=== PATIENT | male | born 1955 | race Caucasian/White ===

== ENCOUNTER → 2022-09-23 12:48 | Outpatient (CLI) | payer MEDICARE, BC, SELFPAY ==
[2022-09-23 14:19] LABS: Prostate Specific Antigen 3.57 ng/mL (0.10-4.00)
== END ==
PROVIDERS: Specialist; Referring Provider Urology; Visit Provider Urology
DX: N40.1 Benign prostatic hyperplasia with lower urinary tract symptoms (principal)
CPT/HCPCS: 36415; 84153

== ENCOUNTER → 2023-03-10 12:39 | Outpatient (CLI) | payer MEDICARE, BC, SELFPAY ==
[2023-03-10 15:19] LABS: Prostate Specific Antigen 4.39 ng/mL (0.10-4.00)
== END ==
PROVIDERS: Referring Provider Specialist; Visit Provider Specialist
DX: N40.1 Benign prostatic hyperplasia with lower urinary tract symptoms (principal)
CPT/HCPCS: 36415; 84153

== ENCOUNTER → 2023-04-08 15:17 | Outpatient (CLI) | payer MEDICARE, BC, SELFPAY ==
[2023-04-11 09:06] LABS: PSA Free % 26.2 % (.); PSA, Total 3.4 ng/mL (0.0-4.0)
== END ==
PROVIDERS: Referring Provider Specialist; Visit Provider Specialist
DX: R97.20 Elevated prostate specific antigen [PSA] (principal)
CPT/HCPCS: 36415; 84153; 84154

== ENCOUNTER 2023-10-04 10:29 | Emergency (ER) | payer MEDICARE, BC, SELFPAY ==
[2023-10-04] VITALS (7 sets, daily range): BP systolic 111–141; BP diastolic 56–75; PULSE 61–68; RESP 12–20; TEMP 36.4–36.5; O2SAT 93–99; BMI 28.0
--- NOTE | 2023-10-04 10:40 | DI.RAD.S_ITS ---
PROCEDURE: XR CHEST 1V INDICATIONS: chest pain TECHNIQUE: One view of the chest was acquired. COMPARISON: None. FINDINGS: Surgical changes and devices: Left chest wall cardiac loop recorder. Lungs and pleura: Lungs are clear. No pleural effusions or pneumothorax. Mediastinum: Mediastinal contours appear normal. Heart size is normal. Bones and chest wall: No suspicious bony lesions. Overlying soft tissues appear unremarkable. IMPRESSION: No acute cardiopulmonary abnormality is seen. Dictated by: Luis A Nath M.D. on 10/04/2023 at 11:37 Approved by: Luis A Nath M.D. on 10/04/2023 at 11:38
[2023-10-04 10:51] LABS: Add Manual Diff / Slide Review NO; Basophils Absolute Auto 100 /uL (0-100); Basophils Percent Auto 1.1 % (0-2); Eosinophils Absolute Auto 100 /uL (0-450); Eosinophils Percent Auto 2.1 % (2-4); Hematocrit 43.1 % (41-53); Hemoglobin 14.6 g/dL (13.5-17.5); Lymphocytes Absolute Auto 2000 /uL (1100-4500); Lymphocytes Percent Auto 35.2 % (25-40); Mean Corpuscular HGB Conc 33.9 % (30-36); Mean Corpuscular Hemoglobin 28.4 PG (26-34); Monocytes Absolute Auto 400 /uL (0-900); Neutrophils Absolute Auto 3000 /uL (1500-7000); Neutrophils Percent Auto 53.6 % (50-75); Platelet Count 153 X10^3/uL (150-400); Red Blood Cell Count 5.13 X10^6/uL (4.5-5.9); Red Cell Distribution Width 13.8 % (11.6-14.8); White Blood Cell Count 5.7 X10^3/uL (4.5-11.0)
[2023-10-04] MEDS: ASPIRIN 81 MG CHEW TAB 324 MG PO (10:54)
[2023-10-04 10:59] LABS: Prothrombin Time 11.5 SECONDS (9.4-12.5)
[2023-10-04 11:02] LABS: Alanine Aminotransferase 32 IU/L (<50); Albumin 4.5 g/dL (3.5-5.0); Albumin Globulin Ratio 1.5 (1.0-2.8); Alkaline Phosphatase 66 U/L (38-126); Aspartate Aminotransferase 35 IU/L (17-59); Bilirubin Total 1.5 mg/dL (0.2-1.3); Blood Urea Nitrogen 14 mg/dL (9-20); Calcium 9.4 mg/dL (8.4-10.2); Carbon Dioxide 29 mmol/L (22-32); Chloride 107 mmol/L (98-107); Creatine Kinase 208 U/L (55-170); Estimated Glomerular Filt Rate > 60 mL/min (>60); Glucose 97 mg/dL (80-110); HEMOLYSIS < 15 (0-50); Lipase 130 U/L (23-300); Magnesium 2.2 mg/dL (1.6-2.3); PTT Partial Thromboplastin Tim 38 SECONDS (25.1-36.5); Potassium 4.5 mmol/L (3.4-5.1); Sodium 140 mmol/L (137-145); Total Protein 7.5 g/dL (6.3-8.2)
[2023-10-04 11:13] LABS: Troponin I 0.013 ng/mL (0.01-0.034)
--- NOTE | 2023-10-04 12:38 | ED.CHESTPAIN ---
HPI - Chest Pain General Chief Complaint: Chest Pain Stated Complaint: pain in chest, has heart monitor per pt Time Seen by Provider: 10/04/23 10:31 Source: patient Mode of arrival: Ambulatory History of Present Illness HPI narrative: 68-year-old male with history of atrial fibrillation on flecainide and diltiazem, atorvastatin with complaint of pain at his loop recorder site. Patient states it was placed in July or August of 2020 by his life scientist in [place]. He is since moved to the area. He started having pain recently at the implant site when he moves or pushes it increases the pain. He has not noticed any redness, swelling or skin changes. No pain elsewhere in his chest, no shortness of breath, no new swelling in extremities other than his left knee which is painful with movement at times. Patient states no fevers or chills. No cold cough congestion symptoms. No other GI or urinary symptoms. Patient had about 20 years of atrial fibrillation that became increasingly more frequent and had his ablation in 2020 followed by a loop recorder. He has not had anymore atrial fibrillation events since then. He reached out to his deputy director of finance office but because he is currently living in [place] they recommended he come to the ED and then be referred back to a local EP. Related Data Home Medications Medication Instructions Recorded Confirmed atorvastatin 10 mg tablet 10 mg PO DAILY 08/11/22 04/21/23 tamsulosin 0.4 mg capsule 0.8 mg PO DAILY 08/11/22 04/21/23 Previous Rx's Medication Instructions Recorded tadalafil 20 mg tablet (Cialis) 20 mg PO DAILY PRN sexual activity 04/21/23 #60 tabs Allergies Allergy/AdvReac Type Severity Reaction Status Date / Time No Known Drug Allergies Allergy Unverified 10/04/23 10:40 Review of Systems Review of Systems ROS Unobtainable: All systems reviewed & are unremarkable except as noted in HPI and below Patient History Medical History Erectile dysfunction Incomplete bladder emptying BPH loc w urin obs/LUTS Family History Mother Cancer Father No problems noted. Sister Diabetes mellitus Social History marital status: unmarried,single number of children: 0 Previous occupational history: mortgage banking Smoking Status: Never smoker alcohol intake: former caffeine: Yes Smoking Status: Never smoker Substance Use Type: does not use Exam Narrative Exam Narrative: GENERAL: Alert and oriented x three, well-appearing male in no acute distress. HEENT: Head normocephalic, atraumatic, EOMI, pupils reactive, face symmetric, moist mucous membranes NECK: Supple, full range of motion CARDIOVASCULAR: Regular rate and rhythm without murmurs, rubs or gallops. Patient has palpable recorder there is no swelling, erythema, patient does not have significant pain with motion. RESPIRATORY: Breath sounds equal bilaterally, no wheezes rales or rhonchi. No tachypnea accessory muscle use. ABDOMEN: Soft, nontender. Normoactive bowel sounds all 4 quadrants. No guarding or rebound, rigidity, no mass : No CVA tenderness EXTREMITIES: Normal range of motion, no clubbing or edema. Neurovascularly intact. Patient has some mild swelling in his left knee increased pain with movement which he states is worse with activity. NEUROLOGICAL: Cranial nerves II through XII grossly intact. Moving all extremities SKIN: Warm, dry, no petechiae, no rashes or lesions. Initial Vital Signs Initial Vital Signs: Vital Signs Pulse Rate 64 10/04/23 10:36 Respiratory Rate 17 10/04/23 10:36 Pulse Oximetry 99 10/04/23 10:36 Course Orders Ordered: ED Orders 10/04/23 10:40 XR chest 1V Stat Complete Blood Count AUTO DIFF Stat Comprehensive Metabolic Panel Stat Lipase Stat Magnesium Stat PTT Partial Thromboplastin [place] Stat Prothrombin Time INR Stat Troponin & CK Cardiac Panel Stat EKG-12 Lead Stat Discontinued Medications Aspirin (Aspirin 81 Mg Chew Tab) 324 mg PO NOW ONE Stop: 10/04/23 10:41 Last Admin: 10/04/23 10:54 Dose: 324 mg Documented By: DELORES Vital Signs Vital signs: Vital Signs - 8 hr 10/04/23 10:36 10/04/23 10:37 10/04/23 11:01 Temperature 97.5 F L Pulse Rate 64 66 Respiratory Rate 17 16 Blood Pressure 141/75 H 111/56 L Pulse Oximetry 99 98 Oxygen Delivery Method Room Air 10/04/23 11:01 10/04/23 11:30 10/04/23 11:30 Temperature Pulse Rate 67 68 Respiratory Rate 20 14 Blood Pressure 113/61 Pulse Oximetry 98 93 Oxygen Delivery Method 10/04/23 12:00 10/04/23 12:00 10/04/23 12:30 Temperature Pulse Rate 64 Respiratory Rate 14 Blood Pressure 120/69 118/73 Pulse Oximetry 96 Oxygen Delivery Method 10/04/23 12:30 10/04/23 13:20 Temperature 97.7 F Pulse Rate 62 61 Respiratory Rate 12 18 Blood Pressure 120/71 Pulse Oximetry 96 98 Oxygen Delivery Method Room Air Room Air MDM - Chest Pain Lab Data 10/04/23 10:40 10/04/23 10:40 Labs: Lab Results 10/04/23 Range/Units 10:40 WBC 5.7 (4.5-11.0) X10^3/uL RBC 5.13 (4.5-5.9) X10^6/uL Hgb 14.6 (13.5-17.5) g/dL Hct 43.1 (41-53) % MCV 84.0 (80-100) fL MCH 28.4 (26-34) PG MCHC 33.9 (30-36) % RDW 13.8 (11.6-14.8) % Plt Count 153 (150-400) X10^3/uL Neut % (Auto) 53.6 (50-75) % Lymph % (Auto) 35.2 (25-40) % [place] % (Auto) 8.0 (3-14) % Eos % (Auto) 2.1 (2-4) % Baso % (Auto) 1.1 (0-2) % Neut # (Auto) 3000 (9044-9514) /uL Lymph # (Auto) 2000 (3736-8015) /uL [place] # (Auto) 400 (0-900) /uL Eos # (Auto) 100 (0-450) /uL Baso # (Auto) 100 (0-100) /uL PT 11.5 (9.4-12.5) SECONDS INR 1.0 (0.9-1.3) APTT 38 H (25.1-36.5) SECONDS Sodium 140 (137-145) mmol/L Potassium 4.5 (3.4-5.1) mmol/L Chloride 107 (98-107) mmol/L Carbon Dioxide 29 (22-32) mmol/L BUN 14 (9-20) mg/dL Creatinine 1.00 (0.66-1.25) mg/dL Estimated GFR > 60 (>60) mL/min BUN/Creatinine Ratio 14.0 (6-22) Glucose 97 (80-110) mg/dL Calcium 9.4 (8.4-10.2) mg/dL Magnesium 2.2 (1.6-2.3) mg/dL Total Bilirubin 1.5 H (0.2-1.3) mg/dL AST 35 (17-59) IU/L ALT 32 (<50) IU/L Alkaline Phosphatase 66 (38-126) U/L Total Creatine Kinase 208 H (55-170) U/L Troponin I 0.013 (0.01-0.034) ng/mL Total Protein 7.5 (6.3-8.2) g/dL Albumin 4.5 (3.5-5.0) g/dL Globulin 3.0 (1.7-4.1) g/dL Albumin/Globulin Ratio 1.5 (1.0-2.8) Lipase 130 (23-300) U/L Imaging Data Chest x-ray: Radiologist's Impression: Rufino Osborne??68??M??1955 ? Allergy/Adv: No Known Drug Allergies Close Chest X-Ray (Signed) Luis A Nath - 10/04/23 [place] [address] XRay Report Signed Patient: Rufino Osborne MR#: [id number] : 1955 Acct:[id number] Age/Sex: 68 / M Date of Service: 10/04/23 Loc: ED Accession Number: [id number] Procedure: XR chest 1V Ordering Provider: Freda Coleman D.O. PROCEDURE: XR CHEST 1V INDICATIONS: chest pain TECHNIQUE: One view of the chest was acquired. COMPARISON: None. FINDINGS: Surgical changes and devices: Left chest wall cardiac loop recorder. Lungs and pleura: Lungs are clear. No pleural effusions or pneumothorax. Mediastinum: Mediastinal contours appear normal. Heart size is normal. Bones and chest wall: No suspicious bony lesions. Overlying soft tissues appear unremarkable. IMPRESSION: No acute cardiopulmonary abnormality is seen. Dictated by: Luis A Nath M.D. on 10/04/2023 at 11:37 Approved by: Luis A Nath M.D. on 10/04/2023 at 11:38 ECG Data Attestation: I personally reviewed and interpreted this ECG as follows: Prior ECG tracings: not available for review Interpretation: Sinus rhythm rate of 68 LA 182 QRS 82 QTC of 421. No acute ST elevation or depression noted. No priors for comparison. MDM Narrative Medical decision making narrative: 68-year-old male with pain with movement or palpation of his implant which has been increasing over the past month. No obvious infectious changes, patient's chest x-ray shows no acute change labs show white count of 5.7 hemoglobin of 14 platelets of 153 INR 1, creatinine is 1 with a BUN of 14 glucose of 97 sodium is 140 with a potassium of 4 5 chloride of 107 and a CO2 of 29, bilirubin slightly elevated at 1.5 with otherwise negative LFTs and a negative lipase. Troponin is 0.013 with a proximally a month of longstanding pain without resolution is not felt to likely be cardiac in source. EKG does not show any acute changes does not appear to be in sinus rhythm. No obvious infectious changes to the recorder itself. Discussed with patient we will give contact for follow up with EP. He also notes pain in his left knee with movement ambulation occasional swelling with activity no trauma or injuries. Patient would like follow up with Orthopedic surgery and contact was given for this as well. Discharge Plan Departure Patient Disposition: Home Clinical Impression: Atypical chest pain Activity Restrictions/Additional Instructions: Follow up Cardiology, if you continue to have discomfort at your loop recorder you can further evaluate it. Please call the contact below to set up follow-up. As discussed there is also referral for orthopedic surgery for your knee. You may continue your home medications as prescribed. Please return for increasing pain, redness, swelling, fevers, new shortness of breath, passing out, arrhythmias, swelling that is new in your extremities or other new or concerning changes, Prescriptions: No Action tadalafil [Cialis] 20 mg tablet 20 mg PO DAILY PRN (Reason: sexual activity) Qty: 60 3RF Rx Instructions: administer approximately 30min before sexual activity; do not use more than 1 dose per 24hrs tamsulosin 0.4 mg capsule 0.8 mg PO DAILY atorvastatin 10 mg tablet 10 mg PO DAILY Referrals: Geremias Osborne MD [Physician] - Ghulam Richardson MD [Physician] - Stand Alone Forms: Patient Portal/API
== END 2023-10-04 13:21 | disposition home or self-care (01) ==
PROVIDERS: Emergency Provider Emergency Medicine
DX: R07.89 Other chest pain (principal)
CPT/HCPCS: 71045; 80053; 82550; 83690; 83735; 84484; 85025; 85610; 85730; 93005; 99284

== ENCOUNTER → 2023-10-20 09:53 | Outpatient (CLI) | payer MEDICARE, BC, SELFPAY ==
[2023-10-20 10:15] LABS: Add Manual Diff / Slide Review NO; Basophils Absolute Auto 100 /uL (0-100); Basophils Percent Auto 1.3 % (0-2); Eosinophils Absolute Auto 100 /uL (0-450); Eosinophils Percent Auto 1.8 % (2-4); Hematocrit 42.9 % (41-53); Hemoglobin 14.4 g/dL (13.5-17.5); Lymphocytes Absolute Auto 2100 /uL (1100-4500); Lymphocytes Percent Auto 37.7 % (25-40); Mean Corpuscular HGB Conc 33.6 % (30-36); Mean Corpuscular Hemoglobin 28.1 PG (26-34); Mean Corpuscular Volume 83.6 fL (80-100); Monocytes Absolute Auto 500 /uL (0-900); Monocytes Percent Auto 8.3 % (3-14); Neutrophils Absolute Auto 2900 /uL (1500-7000); Neutrophils Percent Auto 50.9 % (50-75); Platelet Count 162 X10^3/uL (150-400); Red Blood Cell Count 5.14 X10^6/uL (4.5-5.9); Red Cell Distribution Width 13.6 % (11.6-14.8); White Blood Cell Count 5.6 X10^3/uL (4.5-11.0)
[2023-10-20 10:23] LABS: Prothrombin Time 10.9 SECONDS (9.4-12.5)
[2023-10-20 10:30] LABS: Blood Urea Nitrogen 21 mg/dL (9-20); Calcium 9.7 mg/dL (8.4-10.2); Carbon Dioxide 28 mmol/L (22-32); Chloride 109 mmol/L (98-107); Estimated Glomerular Filt Rate > 60 mL/min (>60); Glucose 102 mg/dL (80-110); HEMOLYSIS < 15 (0-50); Potassium 4.6 mmol/L (3.4-5.1); Sodium 139 mmol/L (137-145)
[2023-10-20 10:31] LABS: PTT Partial Thromboplastin Tim 38 SECONDS (25.1-36.5)
== END ==
PROVIDERS: PCP Physician Assistant; Referring Provider Internal Medicine; Visit Provider Internal Medicine
DX: I49.9 Cardiac arrhythmia, unspecified (principal); Z95.818 Presence of other cardiac implants and grafts; R00.2 Palpitations
CPT/HCPCS: 36415; 80048; 85025; 85610; 85730

== ENCOUNTER → 2024-01-21 18:32 | Outpatient (CLI) | payer MEDICARE, BC, SELFPAY ==
--- NOTE | 2024-01-21 18:34 | DI.MRI.S_ITS ---
PROCEDURE: MR HIP LT WO CON INDICATIONS: HIP PAIN, CHRONIC / TENDON/LIGAMENT ABNORMALITY TECHNIQUE: Noncontrast coronal T1 spin echo and STIR through the bony pelvis. Coronal and axial T2 fast spin echo with fat saturation, sagittal T1 spin echo, and oblique axial T2 fast spin echo with fat saturation through the hip. COMPARISON: [facility] [place], CR, XR PELVIS WITH LATERAL HIP LEFT, 12/30/2023, 11:09. FINDINGS: Image quality: Excellent. Bones and joints: [id number] bilateral hip joint osteoarthritic changes are seen with superior joint space narrowing and subchondral sclerosis. No intraosseous lesions or fractures. No avascular necrosis of the femoral heads. The visualized lower lumbar spine appears normally aligned. Tendons and ligaments: Low-grade partial-thickness tear involving distal left gluteus medius tendon at its insertion on greater trochanter. Distal left gluteus minimus tendinosis is also seen. The nearby proximal iliotibial band also appears intact. The iliopsoas tendon appears intact, without adjacent bursal fluid collections or evidence for impingement syndrome. Tendinosis is also noted involving origin of left hamstring tendon at the ischial tuberosity. Labrum and cartilage: Fraying of superior anterior left hip labrum with T2 hyperintense signal is seen suggestive of superior anterior labral tear. Thinning of articulating cartilage over left femoral head is also seen. Soft tissues: Visualized muscles demonstrate normal bulk and internal signal. Quadratus femoris muscle demonstrates no internal edema to suggest ischiofemoral impingement. The proximal sciatic neurovascular bundle appears normal adjacent to the hamstring tendons. No free pelvic fluid. Bladder wall thickness is normal. Enlarged prostate gland with mass effect on floor of urinary bladder is noted. IMPRESSION: 1. Symmetric appearing [id number] bilateral hip joint osteoarthritis. No pelvic or hip fracture. No evidence of avascular necrosis of femoral head. 2. Low-grade partial-thickness tear involving distal left gluteus medius tendon at greater trochanter. Distal left gluteus minimus tendinosis. Tendinosis involving left hamstring tendon origins at ischial tuberosity. 3. Suggestion of superior anterior left hip labral tear. Dictated by: Darrick Sanders M.D. on 01/24/2024 at 8:10 Approved by: Darrick Sanders M.D. on 01/24/2024 at 8:13
== END ==
PROVIDERS: PCP Physician Assistant; Referring Provider Physician Assistant; Visit Provider Physician Assistant
DX: M16.0 Bilateral primary osteoarthritis of hip (principal); S76.012A Strain of muscle, fascia and tendon of left hip, initial encounter; M25.552 Pain in left hip
CPT/HCPCS: 73721

== ENCOUNTER → 2024-11-20 12:14 | Outpatient (CLI) | payer MEDICARE, BC, SELFPAY ==
[2024-11-21 07:08] LABS: PSA Free % 30.3 % (.)
== END ==
PROVIDERS: PCP Physician Assistant; Referring Provider Urology; Visit Provider Urology
DX: R97.20 Elevated prostate specific antigen [PSA] (principal); N40.1 Benign prostatic hyperplasia with lower urinary tract symptoms
CPT/HCPCS: 36415; 84153; 84154

== ENCOUNTER → 2025-01-04 15:38 | Outpatient (CLI) | payer MEDICARE, BC, SELFPAY ==
--- NOTE | 2025-01-04 15:39 | DI.MRI.S_ITS ---
PROCEDURE: MR PELVIC PROSTATE PROTOCOL INDICATIONS: elevated PSA TECHNIQUE: Coronal HASTE, axial T1 FSE with fat saturation, 3-plane nonbreath-hold T2 FSE. After the administration of contrast, dynamic axial, delayed axial and coronal VIBE or 2-D FLASH with fat saturation through the pelvis. Diffusion weighted imaging and ADC was performed. COMPARISON: None. FINDINGS: Image quality: Diffusion weighted and dynamic contrast enhanced images are diagnostic. Prostate: Gland size is 5.7 x 6.6 x 5.3 cm; ellipsoid gland volume is 104 mL. 0.028 PSA density. Hypertrophy of the transition zone with encapsulated and partially encapsulated nodules. Genitourinary system: Bladder wall thickness is normal. Distal ureters are non distended. Bowel and peritoneum: No pathologic free pelvic fluid. Inferior colon and small bowel loops are normal in caliber. Nodes and vessels: No pelvic or inguinal adenopathy by size criteria. Iliac vessels are normal in caliber. Soft tissues: No inguinal hernias. Bones: Marrow demonstrates normal overall signal, without lesions to suggest metastases. IMPRESSION: Prostate hypertrophy. No PI-RADS 3 through 5 lesions. No pelvic lymphadenopathy by size criteria. No aggressive osseous abnormality. Dictated by: Luis A Nath M.D. on 01/05/2025 at 15:15 Approved by: Luis A Nath M.D. on 01/05/2025 at 15:17
== END ==
PROVIDERS: PCP Physician Assistant; Referring Provider Urology; Visit Provider Urology
DX: N40.0 Benign prostatic hyperplasia without lower urinary tract symptoms (principal); R97.20 Elevated prostate specific antigen [PSA]
CPT/HCPCS: 72197; A9579

== ENCOUNTER → 2025-02-15 14:50 | Outpatient (ROUT) | payer MEDICARE, BC, SELFPAY | PROVIDERS: PCP Physician Assistant; Visit Provider Dermatology | DX: N48.1 Balanitis (principal) | CPT/HCPCS: 87102 ==

== ENCOUNTER → 2025-03-22 13:56 | Outpatient (CLI) | payer MEDICARE, BC, SELFPAY ==
[2025-03-22 14:47] LABS: Appearance Urine UA CLEAR; Bilirubin Urine UA NEGATIVE (NEGATIVE); Color Urine UA YELLOW; Glucose Urine UA NEGATIVE (Negative); Ketones Urine UA NEGATIVE (NEGATIVE); Leukocyte Esterase Urine UA NEGATIVE (NEGATIVE); Nitrite Urine UA NEGATIVE (Negative); Occult Blood Urine UA NEGATIVE (Negative); Protein Urine UA NEGATIVE (Negative); Specific Gravity Urine UA 1.020 (1.000-1.035); Urobilinogen Urine UA 0.2 E.U./dL (0.2); pH Urine UA 5.5 (4.5-8.0)
[2025-03-22 14:48] LABS: Add Manual Diff / Slide Review NO; Hematocrit 41.6 % (41-53); Hemoglobin 14.0 g/dL (13.5-17.5); Lymphocytes Absolute Auto 1900 /uL (1100-4500); Mean Corpuscular HGB Conc 33.6 % (30-36); Mean Corpuscular Hemoglobin 28.3 PG (26-34); Mean Corpuscular Volume 84.1 fL (80-100); Platelet Count 157 X10^3/uL (150-400)
[2025-03-22 14:52] LABS: Culture Indicated Urine Cult Not Indicated
[2025-03-22 14:53] LABS: INR 1.0 (0.9-1.3); Prothrombin Time 11.2 SECONDS (9.4-12.5)
[2025-03-22 14:55] LABS: PTT Partial Thromboplastin Tim 31 SECONDS (25.1-36.5)
[2025-03-22 15:05] LABS: Blood Urea Nitrogen 18 mg/dL (9-20); Calcium 9.7 mg/dL (8.4-10.2); Carbon Dioxide 27 mmol/L (22-32); Chloride 105 mmol/L (98-107); Estimated Glomerular Filt Rate > 60 mL/min (>60); Glucose 71 mg/dL (70-99); HEMOLYSIS < 15 (0-50); Potassium 4.5 mmol/L (3.4-5.1); Sodium 141 mmol/L (137-145)
== END ==
PROVIDERS: PCP Physician Assistant; Referring Provider Urology; Visit Provider Urology
DX: N40.1 Benign prostatic hyperplasia with lower urinary tract symptoms (principal)
CPT/HCPCS: 36415; 80048; 81001; 85025; 85610; 85730; 87086